=== PATIENT | female | born 1950 | race Asian ===

== ENCOUNTER → 2018-01-26 | Outpatient (CLI) | payer MEDICARE, OTHER ==
[~2018-01-26] VITALS: Ht 165.1 cm; Wt 72.0 kg
[2018-01-26 14:23] VITALS: BP 141/60
== END | disposition home or self-care (01) ==
LOC: SRCNTR 14:14
PROVIDERS: ATTEND Internal Medicine
DX: I10 Essential (primary) hypertension (principal); J45.909 Unspecified asthma, uncomplicated; G47.33 Obstructive sleep apnea (adult) (pediatric); Z90.5 Acquired absence of kidney
CPT/HCPCS: G0463

== ENCOUNTER → 2018-05-25 | Outpatient (CLI) | payer MEDICARE, OTHER ==
[~2018-05-25] VITALS: Ht 165.1 cm; Wt 73.5 kg
[2018-05-25 10:52] VITALS: BP 129/66
== END | disposition home or self-care (01) ==
LOC: SRCNTR 10:39
PROVIDERS: ATTEND Internal Medicine
DX: J45.909 Unspecified asthma, uncomplicated (principal); G47.33 Obstructive sleep apnea (adult) (pediatric); I10 Essential (primary) hypertension; Z85.528 Personal history of other malignant neoplasm of kidney; Z90.5 Acquired absence of kidney
CPT/HCPCS: G0463

== ENCOUNTER 2019-03-31 08:32 | Day surgery (SDC) | payer MEDICARE, OTHER ==
[~2019-03-31] VITALS: Ht 167.6 cm; Wt 72.7 kg
[~2019-03-31 08:32] MED LIST: 0.9% SODIUM CHLORIDE 10 ML SYRINGE IVP PRN; ASPI81 PO; CARV6 PO; IRBE75TA10 PO; LEVO50 PO; MACR100 PO; MECL-111 PO; METOPROLOL TARTRATE 50 MG TABLET PO PRN; OMEG-12 PO; PANT20TA12 PO; PRAV20TA4 PO
[2019-03-31] MEDS ORDERED: METOPROLOL TARTRATE 50 MG TABLET ONE (09:23)
[2019-03-31 09:52] LABS: CALCIUM, TOTAL 9.2 mg/dL (8.8-10.5); CREATININE 1.28 mg/dL (0.60-1.30); POTASSIUM 3.9 mmol/L (3.5-5.1)
== END 2019-03-31 10:10 | disposition home or self-care (01) ==
LOC: SURGERY 08:32 → EDSTATUS 10:00 → SURGERY 10:10
PROVIDERS: ATTEND Internal Medicine Cardiovascular Disease
DX: R07.9 Chest pain, unspecified (principal); I10 Essential (primary) hypertension; M19.90 Unspecified osteoarthritis, unspecified site; Z87.442 Personal history of urinary calculi; Z90.49 Acquired absence of other specified parts of digestive tract; Z90.710 Acquired absence of both cervix and uterus; Z90.5 Acquired absence of kidney; Z98.890 Other specified postprocedural states; Z53.8 Procedure and treatment not carried out for other reasons
CPT/HCPCS: 93005